=== PATIENT | male | born 1995 | race Caucasian/White ===

== ENCOUNTER 2018-03-03 20:05 | Emergency (ER) | payer BC ==
[~2018-03-03] VITALS: Ht 170.1 cm; Wt 59.0 kg
[~2018-03-03 20:05] MED LIST: BACTRIM DS 8001 TA1 PO; IBU800 MG PO
[2018-03-03] MEDS ORDERED: CEPHALEXIN500 M1 PO (22:56)
== END 2018-03-03 22:59 | disposition home or self-care (01) ==
LOC: ED 20:05
DX: S61.212A Laceration without foreign body of right middle finger without damage to nail, initial encounter (principal); Z79.2 Long term (current) use of antibiotics; W27.8XXA Contact with other nonpowered hand tool, initial encounter; Y93.89 Activity, other specified; Y92.69 Other specified industrial and construction area as the place of occurrence of the external cause; Y99.9 Unspecified external cause status